=== PATIENT | female | born 1985 | race Caucasian/White ===

== ENCOUNTER 2024-12-07 15:03 | Emergency (ER) | payer BC, SELFPAY ==
[2024-12-07 15:12] VITALS: BP 146/105
--- NOTE | 2024-12-07 15:15 | ED.GENMED ---
ED Provider Triage
<Pablo Guevara PA-C - Last Filed: 12/07/24 15:16>
-
Patient seen by provider in Triage?: Seen in Triage
39-year-old female G3, P1 currently 10 weeks 5 days along presents with lower abdominal cramping and large amount of vaginal bleeding as she sat down to go to the bathroom earlier today. This is an IVF . She saw her OB, Dr. Perrin, at
[facility] yesterday and everything checked out well.
Looks stable through triage. No significant discomfort. Vital signs reviewed. Labs including beta-hCG type and screen and ultrasound ordered
Patient was evaluated at triage by healthcare provider but does warrant further assessment
History of Present Illness
<Pablo Guevara PA-C - Last Filed: 12/07/24 15:16>
General
Chief Complaint: Vaginal Bleeding
Time Seen by Provider: 12/07/24 16:01
<Rosy Bennett PA-C - Last Filed: 12/07/24 22:18>
General
Source: patient
Exam Limitations: none
Nursing documentation reviewed up to this point in time: agreed with
History of Present Illness
History of Present Illness:
39-year-old G3, P1 female presents emergency department today with concerns of vaginal bleeding x 1 day. Patient reports that she was at work today when she went to use the bathroom and noticed rosa vaginal bleeding. She states that this current
was conceived via IVF and she has never utilized IVF prior. Patient states that she had a normal ultrasound yesterday and follows with [facility]. Patient denies any syncopal episodes or lightheadedness. She denies any dizziness.
Patient states that she does have a history of iron deficiency anemia but her hemoglobin has been stable and she has been utilizing vitamins with iron. Patient denies any lower abdominal cramping, denies any back pain. Patient states that
she has had miscarriages in the past and states that this feels different. Patient states that since the bleeding started she is only had to change her pad once.
Past History
<Pablo Guevara PA-C - Last Filed: 12/07/24 15:16>
Past History
ED Past Medical History: GERD and Other (Occasional conjunctivitis)
ED Past Surgical History: Gynecological
Social History
Tobacco: Non-smoker
Alcohol: Occasional
Drug: None
Personal:
Living: with family
Employment: Employed
Family History
Family History: Other (Noncontributory)
Review of Systems
<Rosy Bennett PA-C - Last Filed: 12/07/24 22:18>
Review of Systems
All Other Systems: ROS reviewed and negative except as documented in HPI and ROS
Phy Exam
<Rosy Bennett PA-C - Last Filed: 12/07/24 22:18>
Physical Exam
Physical Exam:
General: Patient is well appearing and in no acute distress; non-toxic
Skin: Warm and dry, no rashes or lesions
Head: Normocephalic, atraumatic
Eyes: Sclera non-icteric. EOMs intact.
Cardiac: Regular rate and rhythm no murmur
Peripheral Vascular: No lower extremity swelling or edema
Pulm: Normal respiratory effort, no wheezes, rales, rhonchi
Abdomen: No abdominal tenderness to palpation, no palpable masses
Neuro: CN II-XII intact, no focal neurologic deficits.
Psychiatric: Appropriate mood and affect.
Course
<Pablo Guevara PA-C - Last Filed: 12/07/24 15:16>
Orders/Labs/Results
Orders:
Orders
12/07/24 15:13
US W Transvaginal Urgent
Reason For Exam: bleeding
12/07/24 15:14
Test Result ONCE
12/07/24 15:31
Type+Screen Urgent
Complete Blood Count/With Diff Urgent
Comprehensive Metabolic Panel Urgent
HCG, Beta Quantitative [Beta HCG Quantitative] Urgent
Is this a screen?: No
Abnormal Lab Results
12/07/24
15:31
MCH 31.8 H pg
(27.0-31.0)
Sodium 133 L mmol/L
(135-145)
12/07/24 15:31
12/07/24 15:31
Vital Signs
Initial and Last Documented VS:
Initial Vital Signs
Temp Pulse Resp BP Pulse Ox
36.9 C 105 20 146/105 99
12/07/24 15:12 12/07/24 15:12 12/07/24 15:12 12/07/24 15:12 12/07/24 15:12
Last Documented Vital Signs
Temp Pulse Resp BP Pulse Ox
36.9 C 90 20 120/86 99
12/07/24 15:12 12/07/24 17:06 12/07/24 17:06 12/07/24 17:06 12/07/24 17:06
Rose Marielt;Rosy Bennett PA-C - Last Filed: 12/07/24 22:18>
Orders/Labs/Results
Orders:
Orders
12/07/24 15:13
US W Transvaginal Urgent
Reason For Exam: bleeding
12/07/24 15:14
Test Result ONCE
12/07/24 15:31
Type+Screen Urgent
Complete Blood Count/With Diff Urgent
Comprehensive Metabolic Panel Urgent
HCG, Beta Quantitative [Beta HCG Quantitative] Urgent
Is this a screen?: No
Abnormal Lab Results
12/07/24
15:31
MCH 31.8 H pg
(27.0-31.0)
Sodium 133 L mmol/L
(135-145)
12/07/24 15:31
12/07/24 15:31
Vital Signs
Initial and Last Documented VS:
Initial Vital Signs
Temp Pulse Resp BP Pulse Ox
36.9 C 105 20 146/105 99
12/07/24 15:12 12/07/24 15:12 12/07/24 15:12 12/07/24 15:12 12/07/24 15:12
Last Documented Vital Signs
Temp Pulse Resp BP Pulse Ox
36.9 C 90 20 120/86 99
12/07/24 15:12 12/07/24 17:06 12/07/24 17:06 12/07/24 17:06 12/07/24 17:06
<Lyle Fernandez MD - Last Filed: 12/07/24 23:26>
Orders/Labs/Results
Orders:
Orders
12/07/24 15:13
US W Transvaginal Urgent
Reason For Exam: bleeding
12/07/24 15:14
Test Result ONCE
12/07/24 15:31
Type+Screen Urgent
Complete Blood Count/With Diff Urgent
Comprehensive Metabolic Panel Urgent
HCG, Beta Quantitative [Beta HCG Quantitative] Urgent
Is this a screen?: No
Abnormal Lab Results
12/07/24
15:31
MCH 31.8 H pg
(27.0-31.0)
Sodium 133 L mmol/L
(135-145)
12/07/24 15:31
12/07/24 15:31
Vital Signs
Initial and Last Documented VS:
Initial Vital Signs
Temp Pulse Resp BP Pulse Ox
36.9 C 105 20 146/105 99
12/07/24 15:12 12/07/24 15:12 12/07/24 15:12 12/07/24 15:12 12/07/24 15:12
Last Documented Vital Signs
Temp Pulse Resp BP Pulse Ox
36.9 C 90 20 120/86 99
12/07/24 15:12 12/07/24 17:06 12/07/24 17:06 12/07/24 17:06 12/07/24 17:06
<Rosy Bennett PA-C - Last Filed: 12/07/24 22:18>
MDM/Problems Addressed
Differential Diagnosis Includes:
see below
MDM/Problems Addressed:
NUMBER AND COMPLEXITY OF PROBLEMS ADDRESSED AT THE ENCOUNTER
� Chronic conditions affecting care: n/a
� Acute Exacerbation and/or Progression of Chronic Illness:
� Differential Diagnosis includes: spontaneous , threatened miscarriage, subchorionic hemorrhage, implantation bleeding
AMOUNT AND/OR COMPLEXITY OF DATA TO BE REVIEWED AND ANALYZED
� I performed an independent evaluation of and my interpretation is:
Ultrasound reveals subchorionic hemorrhage
Laboratory Studies: H+H stable
Other:
� Review of other/old records: Reviewed ER physician documentation from 11/16/2023, patient seen for conjunctivitis of the eye, reviewed discharge summary from 07/28/2023 patient was seen for endometritis and acute blood loss anemia
� Clinical information was obtained by an independent historian: n/a
� Prescriptions/Medications Considered but not given: n/a
� Further testing considered but not performed: n/a
RISK OF COMPLICATIONS AND/OR MORBIDITY OR MORTALITY OF PATIENT MANAGEMENT
� Social determinants of health affecting care: none
� Discussion with other providers: ER attending
� Escalation of care including admission/observation vs risk of discharge considered:
39-year-old female G3, P1 presents emergency department today with concerns of vaginal bleeding that started while she was at work today. Patient is change her pad once since the bleeding started. She notes rosa blood, she denies any clots. She
denies any burning with urination. She denies any fevers or chills. She is well-appearing on exam, she is hemodynamically stable. Her ultrasound revealed subchorionic hemorrhage. We did this findings with patient as well as return precautions.
I advised patient that she should follow-up with her [facility] as soon as possible, provide patient with ultrasound results. Patient stable for discharge.
<Rosy Bennett PA-C - Last Filed: 12/07/24 22:18>
*Pulse Oximetry
Patient hypoxic: no
*Critical Care Note
Total Time (30-74mins, 75-104mins- exclusive of procedures): Not Applicable
Data Reviewed
Prescriptions/Medications Considered But Not Given:
n/a
Further Testing Considered But Not Given:
n/a
ED Attending Note
<Pablo Guevara PA-C - Last Filed: 12/07/24 15:16>
-
Portions of this chart may have been created with voice recognition software.� Occasional wrong word or��sound alike� substitutions may have occurred due to the inherent limitations of voice recognition software.
<Lyle Fernandez MD - Last Filed: 12/07/24 23:26>
ED Attending Note
Patient seen and examined by attending physician: Yes
ED Attending Note:
I have seen and evaluated the patient with a [id number] encounter. I have spoken to the advance practicer provider and involved in the medical history, the physical exam, medical decision making.
Evaluation and management service: agree unless noted differently below.
Results interpretation: agree unless noted differently below.
Focused HPI: 39-year-old female who is 10 weeks 5 days A1 presents to the ER for evaluation of vaginal bleeding. She says that bleeding starting today and has been consistent that she says she soaked through about 1 pad in the
afternoon today. No clots or tissue noted. She reports some vague mild cramping but nothing significant. No other symptoms noted. Follows at [facility] for [facility] care�current aided by IVF.
Physical exam: Awake alert no distress. Vital signs noted for tachycardia in triage normalized by my assessment. Blood pressure also normalized. Abdomen soft, nontender to palpation.
Medical Decision Makin-year-old female presents for evaluation of vaginal bleeding in first trimester. Vitals and exam as above. Labs sent off including a CBC which showed normal hemoglobin. She is Rh+. Ultrasound shows viable IUP with
small subchorionic hemorrhage. Stable for discharge with close [facility] follow-up. Patient very comfortable with this plan.
Discharge Plan
Departure
Patient Disposition: Home (Routine Discharge)
Date of Disposition: 12/07/24
Time of Disposition: 17:35
Patient with high blood pressure during this ER visit?: Yes
Condition: Good
Discharge Problem:
Subchorionic hemorrhage
Instructions: Subchorionic Bleeding, BLOOD PRESSURE
Prescriptions:
No Action
Vitamin
1 tab PO DAILY
acetaminophen [Pain Relief ES (acetaminophen)] 500 mg Tablet
1,000 mg PO Q6HPRN PRN (Reason: mild pain) Qty: 0 0RF
ibuprofen 600 mg Tablet
600 mg PO Q6HPRN PRN (Reason: cramping) Qty: 0 0RF
doxycycline hyclate 100 mg Capsule
100 mg PO Q12 12 Days Qty: [address] 0.3-0.05 % drops,suspension
1 drp ophthalmic (eye) Q2H 2 Days Qty: 5 0RF
Referrals:
Monse Park MD [Family Provider] -
Activity Restrictions/Additional Instructions:
Please call your [facility] to schedule a follow up appointment, please let them know the results of your ultrasound.
PLEASE RETURN TO THE EMERGENCY DEPARTMENT SHOULD YOU EXPERIENCE CHEST PAIN, SHORTNESS OF BREATH, LIGHTHEADEDNESS, DIZZINESS, IF YOU ARE CHANGING PADS MORE THAN 1-2 TIMES PER HOUR, OR ANY OTHER SIGNS OR SYMPTOMS WORRISOME TO YOU.
Interventions
Interventions:
*Risk Screen - Suicide Last Done: 12/07/24 15:12
*General Assessment Last Done: 12/07/24 15:12
*Neglect/Abuse Screening Last Done: 12/07/24 15:12
*ED COVID-19 Vaccine History Last Done: 12/07/24 17:07
*Nursing Disposition Last Done: 12/07/24 18:04
ED-Female Genitourinary Assessment Last Done: 12/07/24 17:06
Discharge Date and Time
Discharge Date/Time: 12/07/24 18:04
Print Language: CROATIAN
[2024-12-07 15:46] LABS: % Basophils 0.5 % (0-2); % Eosinophils 0.9 % (0-6); % Immature Granulocytes 0.4 % (0-0.5); % Lymphocytes 24.7 % (20.5-51.1); % Monocytes 5.3 % (1.7-9.3); % Neutrophils 68.2 % (42.2-75.2); Absolute Eosinophils 0.1 10^3/uL (0-0.7); Absolute Lymphocytes 1.9 10^3/uL (1.2-3.4); Absolute Monocytes 0.4 10^3/uL (0.1-0.6); Absolute Neutrophils 5.3 10^3/uL (1.4-6.5); Hematocrit 41.7 % (37.0-47.0); Hemoglobin 14.5 g/dL (12.0-16.0); Mean Corp Hgb Conc. 34.8 g/dL (33.0-37.0); Mean Corpuscular Hgb 31.8 pg (27.0-31.0); Mean Corpuscular Volume 91.4 fL (81.0-99.0); Mean Platelet Volume 9.4 fL (7.4-10.4); Nucleated Red Blood Cells % 0 %; Platelet Count 333 10^3/uL (130-400); Red Blood Cell Count 4.56 10^6/uL (4.20-5.40); Red Cell Dist. Width 11.7 % (11.5-14.5); White Blood Cell Count 7.7 10^3/uL (4.8-10.8)
[2024-12-07 16:03] LABS: ALT (SGPT) 18 U/L (0-35); AST (SGOT) 23 U/L (14-36); Albumin 4.5 g/dl (3.5-5.0); Alkaline Phosphatase 56 U/L (38-126); Blood Urea Nitrogen 11 mg/dl (7-17); Calcium 9.8 mg/dl (8.4-10.2); Carbon Dioxide 24 mmol/L (22-30); Chloride 98 mmol/L (98-107); Glucose 93 mg/dl (70-99); Potassium 4.3 mmol/L (3.5-5.1); Sodium 133 mmol/L (135-145); Total Bilirubin 0.4 mg/dl (0.2-1.3); Total Protein 7.2 g/dl (6.3-8.2); eGFR > 60.00
[2024-12-07 17:06] VITALS: BP 120/86
== END 2024-12-07 18:04 | disposition home or self-care (01) ==
LOC: EMR 15:03
PROVIDERS: Physician Assistant; EMERGENCY PHYSICIAN Emergency Medicine; FAMILY PHYSICIAN Student in an Organized Health Care Education/Training Program
DX: O20.9 Hemorrhage in early pregnancy, unspecified (principal); Z3A.11 11 weeks gestation of pregnancy; R03.0 Elevated blood-pressure reading, without diagnosis of hypertension; O99.611 Diseases of the digestive system complicating pregnancy, first trimester; K21.9 Gastro-esophageal reflux disease without esophagitis; D50.9 Iron deficiency anemia, unspecified
CPT/HCPCS: 99284; 76801; 76817; 80053; 84702; 85025; 86850; 86900; 86901